=== PATIENT | female | born 1970 | race Caucasian/White ===

== ENCOUNTER → 2018-10-18 | Outpatient (CLI) | payer SELFPAY ==
--- NOTE | 2018-10-18 10:41 | Diagnostic Imaging Report ---
PROCEDURE: US Hepatic (Liver). TECHNIQUE: Multiple real-time grayscale images were obtained over the right upper quadrant in various projections. INDICATION: Elevated liver enzymes. FINDINGS: Liver is upper limits of normal in size at 17.7 cm. Liver is diffusely echogenic consistent with hepatic steatosis. There is parenchymal heterogeneity. No discrete liver mass is identified. The portal vein is patent and shows normal direction of flow. Gallbladder is without stones or sludge. No wall thickening or biliary duct dilatation is seen. The pancreas is poorly visualized due to bowel gas. Right kidney is unremarkable. No calculi or hydronephrosis is seen. There is no ascites. IMPRESSION: 1. Hepatic steatosis. 2. No evidence of cholelithiasis or acute cholecystitis. Dictated by: Dictated on workstation # [id number]
== END ==
LOC: RAD 09:37
PROVIDERS: ATTEND Registered Nurse
DX: K76.0 Fatty (change of) liver, not elsewhere classified (principal)
CPT/HCPCS: 76705

== ENCOUNTER 2018-11-18 16:38 | Emergency (ER) | payer OTHER ==
[~2018-11-18] VITALS: Ht 157.5 cm; Wt 85.7 kg
--- OUTSIDE RECORDS SUMMARY | 2018-11-18 16:42 | XMS REPORT ---
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 Active 24472998 Problem Astigmatism of both eyes, unspecified type H52.203 Active 98949630 Problem Open angle with borderline findings and high glaucoma risk in both eyes H40.023 Active 778666600 Problem Myopia of both eyes H52.13 Active 95398933 Problem Presbyopia H52.4 Active 85564222 Problem Pinguecula, bilateral H11.153 Active 55383151 Problem Hyperlipidemia E78.5 Active 33255405 Problem Diabetes mellitus type 2, uncontrolled E11.65 Active 60166040 Problem Generalized anxiety disorder F41.1 Active 12226577 Problem Severe episode of recurrent major depressive disorder, without psychotic features F33.2 Active 56672493 Problem PTSD (post-traumatic stress disorder) F43.10 Active 94538287 Problem Posttraumatic stress disorder F43.10 Active 30552468 ALLERGIES No Information ENCOUNTERS Encounter Location Date Diagnosis [place] [id number] [address] Jun, [place] [address] [address] Jun, [place] [address] [place] [address] May, [place] [address] [place] [address] May, Generalized anxiety disorder F41.1 ; Severe episode of recurrent major depressive disorder, without psychotic features F33.2 and Posttraumatic stress disorder F43.10 [place] [id number] [address] May, Severe episode of recurrent major depressive disorder, without psychotic features F33.2 ; Generalized anxiety disorder F41.1 and PTSD (post-traumatic stress disorder) F43.10 [facility] [id number] [address] May, [facility] [address] [place] [address] Apr, [place] [address] [place] [address] Apr, Diabetes mellitus type 2, uncontrolled E11.65 [place] [address] [address] Apr, Generalized anxiety disorder F41.1 ; Severe episode of recurrent major depressive disorder, without psychotic features F33.2 and Posttraumatic stress disorder F43.[address] [id number] [id number] Apr, [place] [id number] [address] Apr, Severe episode of recurrent major depressive disorder, without psychotic features F33.2 ; Generalized anxiety disorder F41.1 and PTSD (post-traumatic stress disorder) F43.[address] [id number] [id number] Apr, Diabetes mellitus type 2, uncontrolled E11.65 ; Severe episode of recurrent major depressive disorder, without psychotic features F33.2 ; Generalized anxiety disorder F41.1 and PTSD (post-traumatic stress disorder) F43.10 [place] [id number] [address] Mar, Severe episode of recurrent major depressive disorder, without psychotic features F33.2 ; Generalized anxiety disorder F41.1 and PTSD (post-traumatic stress disorder) F43.10 [place] [id number] [address] Mar, [facility] [address] [facility] [id number] [id number] Mar, Diabetes mellitus type 2, uncontrolled E11.65 ; Hyperlipidemia E78.5 ; Elevated liver enzymes R74.8 ; Hematochezia K92.1 ; Severe episode of recurrent major depressive disorder, without psychotic features F33.2 ; Generalized anxiety disorder F41.1 and Vaginal odor N94.89 [facility] [address] [facility] [id number] [place] [id number] 02 Mar, 2018 Hematochezia K92.1 and General medical examination Z00.00 [facility] [address] [facility] [id number] [address] Mar, Generalized anxiety disorder F41.1 and Severe episode of recurrent major depressive disorder, without psychotic features F33.2 [facility] [address] [facility] [id number] [place] [address] Mar, Suicidal ideation R45.851 ; Depression F32.9 ; Urinary tract infection N39.0 ; Urinary urgency R39.15 ; Vaginal odor N94.89 ; Hematochezia K92.1 and General medical examination Z00.00 IMMUNIZATIONS No Known Immunizations SOCIAL HISTORY Never Assessed REASON FOR VISIT f/u PLAN OF CARE Activity Details Follow Up Next available Reason: F/U VITAL SIGNS MEDICATIONS Unknown Medications RESULTS No Results PROCEDURES Procedure Date Ordered Result Body Site Psychotherapy, patient and family, 45 minutes, established patient May 22, 2018 INSTRUCTIONS MEDICATIONS ADMINISTERED No Known Medications MEDICAL (GENERAL) HISTORY Type Description Date Medical History DM type 2 Medical History depression/anxiety Medical History Hematochezia Medical History Hematochezia Surgical History section Surgical History tubal ligation Surgical History oopherectomy left ovary Surgical History partial hysterectomy Hospitalization History Surgery(s)/Childbirth(s) only
--- OUTSIDE RECORDS SUMMARY | 2018-11-18 16:43 | XMS REPORT ---
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 Active 79827418 Problem Astigmatism of both eyes, unspecified type H52.203 Active 68279240 Problem Open angle with borderline findings and high glaucoma risk in both eyes H40.023 Active 069530968 Problem Myopia of both eyes H52.13 Active 94924723 Problem Presbyopia H52.4 Active 55867414 Problem Pinguecula, bilateral H11.153 Active 54836756 Problem Hyperlipidemia E78.5 Active 22416242 Problem Diabetes mellitus type 2, uncontrolled E11.65 Active 15160395 Problem Generalized anxiety disorder F41.1 Active 53629523 Problem Severe episode of recurrent major depressive disorder, without psychotic features F33.2 Active 85850050 Problem PTSD (post-traumatic stress disorder) F43.10 Active 86155736 Problem Posttraumatic stress disorder F43.10 Active 56791752 ALLERGIES Substance Reaction Event Type Date Status Codeine Sulfate nausea and vomiting Drug Allergy May, Active ENCOUNTERS Encounter Location Date Diagnosis [facility] [place] [id number] [address] Jun, [facility] [place] [id number] [address] May, [facility] [place] [id number] [address] May, Severe episode of recurrent major depressive disorder, without psychotic features F33.2 ; Generalized anxiety disorder F41.1 and PTSD (post-traumatic stress disorder) F43.10 [facility] [place] [address] [address] May, [facility] [place] [address] [address] Apr, [facility] [place] [address] [address] Apr, Diabetes mellitus type 2, uncontrolled E11.65 [facility] [place] [address], [place] [address] Apr, Generalized anxiety disorder F41.1 ; Severe episode of recurrent major depressive disorder, without psychotic features F33.2 and Posttraumatic stress disorder F43.[address] [id number] [id number] Apr, [facility] [place] [id number] [address] Apr, Severe episode of recurrent major depressive disorder, without psychotic features F33.2 ; Generalized anxiety disorder F41.1 and PTSD (post-traumatic stress disorder) F43.10 [facility] [address] [facility] [id number] [id number] Apr, Diabetes mellitus type 2, uncontrolled E11.65 ; Severe episode of recurrent major depressive disorder, without psychotic features F33.2 ; Generalized anxiety disorder F41.1 and PTSD (post-traumatic stress disorder) F43.10 [facility] [place] [id number] [address] Mar, Severe episode of recurrent major depressive disorder, without psychotic features F33.2 ; Generalized anxiety disorder F41.1 and PTSD (post-traumatic stress disorder) F43.10 [facility] [place] [address] [facility] [id number] [address] Mar, [facility] [address] [id number] Mar, Diabetes mellitus type 2, uncontrolled E11.65 ; Hyperlipidemia E78.5 ; Elevated liver enzymes R74.8 ; Hematochezia K92.1 ; Severe episode of recurrent major depressive disorder, without psychotic features F33.2 ; Generalized anxiety disorder F41.1 and Vaginal odor N94.89 [facility] [address] [facility] [id number] [place] [id number] 02 Mar, 2018 Hematochezia K92.1 and General medical examination Z00.00 [facility] [place] [address] [facility] [id number] [place] [address] Mar, Generalized anxiety disorder F41.1 and Severe episode of recurrent major depressive disorder, without psychotic features F33.2 [facility] [address] [facility] [id number] [place] [id number] 01 Mar, 2018 Suicidal ideation R45.851 ; Depression F32.9 ; Urinary tract infection N39.0 ; Urinary urgency R39.15 ; Vaginal odor N94.89 ; Hematochezia K92.1 and General medical examination Z00.00 IMMUNIZATIONS No Known Immunizations SOCIAL HISTORY Never Assessed REASON FOR VISIT f/u Alberto PLAN OF CARE Activity Details Follow Up 4 Weeks Reason: f/u VITAL SIGNS Height 62 in 2018-05-16 Weight 195.2 lbs 2018-05-16 Heart Rate 76 bpm 2018-05-16 Respiratory Rate 20 2018-05-16 BMI 35.7 kg/m2 2018-05-16 Blood pressure systolic 126 mmHg 2018-05-16 Blood pressure diastolic 72 mmHg 2018-05-16 MEDICATIONS Medication Instructions Dosage Frequency Start Date End Date Duration Status Gabapentin 100 MG Orally 3 times a day 1 capsule 8h Not-Taking Glucometer 1 kit as directed Mar, daily Active Pristiq 50 mg Orally Once a day 1 tablet 24h May, 30 day(s) Active Lisinopril 5 mg Orally Once a day 1 tablet 24h Apr, 30 day(s) Active MetFORMIN HCl ER 500 mg Orally twice a day with food 2 tablet Mar, Active RESULTS No Results PROCEDURES No Known procedures INSTRUCTIONS MEDICATIONS ADMINISTERED No Known Medications MEDICAL (GENERAL) HISTORY Type Description Date Medical History DM type 2 Medical History depression/anxiety Medical History Hematochezia Medical History Hematochezia Surgical History section Surgical History tubal ligation Surgical History oopherectomy left ovary Surgical History partial hysterectomy Hospitalization History Surgery(s)/Childbirth(s) only
--- OUTSIDE RECORDS SUMMARY | 2018-11-18 16:43 | XMS REPORT ---
Author Author MISA FIGUEROA [facility] Address [address] [place] [address] Care Team Providers Care Commissary Manager Name Role Phone MISA FIGUEROA Unavailable PROBLEMS Type Condition ICD9-CM Code JTO56-PL Code Onset Dates Condition Status SNOMED Code Problem Hyperlipidemia E78.5 Active 21234048 Problem Diabetes mellitus type 2, uncontrolled E11.65 Active 54951601 Problem Severe episode of recurrent major depressive disorder, without psychotic features F33.2 Active 78388081 Problem Generalized anxiety disorder F41.1 Active 53553937 Problem PTSD (post-traumatic stress disorder) F43.10 Active 60264156 Problem Posttraumatic stress disorder F43.10 Active 22264956 ALLERGIES Substance Reaction Event Type Date Status Codeine Sulfate nausea and vomiting Drug Allergy Apr, Active ENCOUNTERS Encounter Location Date Diagnosis [facility] [address], [place] [address] May, [facility] [id number] [place] [address] May, [facility] [address], [place] [address] Apr, [facility] [address] [place] [address] Apr, [facility] [address] [place] [address] Apr, Generalized anxiety disorder F41.1 ; Severe episode of recurrent major depressive disorder, without psychotic features F33.2 and Posttraumatic stress disorder F43.10 [facility] [address] [id number] [id number] Apr, [facility] [address], [place] [address] Apr, Severe episode of recurrent major depressive disorder, without psychotic features F33.2 ; Generalized anxiety disorder F41.1 and PTSD (post-traumatic stress disorder) F43.[address] [place] [id number] Apr, Diabetes mellitus type 2, uncontrolled E11.65 ; Severe episode of recurrent major depressive disorder, without psychotic features F33.2 ; Generalized anxiety disorder F41.1 and PTSD (post-traumatic stress disorder) F43.10 [place] [id number] [place] [address] Mar, Severe episode of recurrent major depressive disorder, without psychotic features F33.2 ; Generalized anxiety disorder F41.1 and PTSD (post-traumatic stress disorder) F43.10 [place] [address] [place] [address] Mar, [address] [place] [id number] Mar, Diabetes mellitus type 2, uncontrolled E11.65 ; Hyperlipidemia E78.5 ; Elevated liver enzymes R74.8 ; Hematochezia K92.1 ; Severe episode of recurrent major depressive disorder, without psychotic features F33.2 ; Generalized anxiety disorder F41.1 and Vaginal odor N94.[address] [place] [id number] 02 Mar, 2018 Hematochezia K92.1 and General medical examination Z00.00 [place] [address] [place] [address] Mar, Generalized anxiety disorder F41.1 and Severe episode of recurrent major depressive disorder, without psychotic features F33.[address] [place] [phone] Mar, Suicidal ideation R45.851 ; Depression F32.9 ; Urinary tract infection N39.0 ; Urinary urgency R39.15 ; Vaginal odor N94.89 ; Hematochezia K92.1 and General medical examination Z00.00 IMMUNIZATIONS No Known Immunizations SOCIAL HISTORY Never Assessed REASON FOR VISIT f/u Alberto PLAN OF CARE Activity Details Follow Up 4 Weeks Reason: Follow-up VITAL SIGNS Height 62 in 2018-04-16 Weight 202.3 lbs 2018-04-16 Heart Rate 84 bpm 2018-04-16 Respiratory Rate 18 2018-04-16 BMI 37.00 kg/m2 2018-04-16 Blood pressure systolic 134 mmHg 2018-04-16 Blood pressure diastolic 78 mmHg 2018-04-16 MEDICATIONS Medication Instructions Dosage Frequency Start Date End Date Duration Status MetFORMIN HCl ER 500 mg Orally as directed #1 tablet PO Q AM and #2 tablet PO Q PM Mar, 30 day(s) Active Glucometer 1 kit as directed Mar, daily Active Lexapro 10 MG Orally Once a day for two weeks, then 1.5 tablet daily 1 tablet Mar, 30 days Active Lisinopril 5 mg Orally Once a day 1 tablet 24h Apr, 30 day(s) Active HydrOXYzine HCl 50 MG Orally at bedtime as needed for sleep 1 tablet Mar, 30 days Active Gabapentin 100 MG Orally 3 times a day 1 capsule 8h Active RESULTS No Results PROCEDURES No Known procedures INSTRUCTIONS MEDICATIONS ADMINISTERED No Known Medications MEDICAL (GENERAL) HISTORY Type Description Date Medical History DM type 2 Medical History depression/anxiety Medical History Hematochezia Medical History Hematochezia Surgical History section Surgical History tubal ligation Surgical History oopherectomy left ovary Surgical History partial hysterectomy Hospitalization History Surgery(s)/Childbirth(s) only
--- OUTSIDE RECORDS SUMMARY | 2018-11-18 16:43 | XMS REPORT ---
Author Author MILLIE HARRIS [facility] Address [address] [place] [address] Care Team Providers Care Bridge Worker Apprentice Name Role Phone MILLIE HARRIS Unavailable PROBLEMS Type Condition ICD9-CM Code TEE31-HH Code Onset Dates Condition Status SNOMED Code Problem Hyperlipidemia E78.5 Active 84016245 Problem Diabetes mellitus type 2, uncontrolled E11.65 Active 76027876 Problem Severe episode of recurrent major depressive disorder, without psychotic features F33.2 Active 24761506 Problem Generalized anxiety disorder F41.1 Active 91843425 Problem PTSD (post-traumatic stress disorder) F43.10 Active 79566016 Problem Posttraumatic stress disorder F43.10 Active 79005846 ALLERGIES No Information ENCOUNTERS Encounter Location Date Diagnosis [facility] [address], [place] [address] May, [facility] [id number] [place] [address] May, [facility] [id number] [place] [address] Apr, [facility] [address] [place] [address] Apr, Generalized anxiety disorder F41.1 ; Severe episode of recurrent major depressive disorder, without psychotic features F33.2 and Posttraumatic stress disorder F43.10 [facility] [address] [id number] [id number] Apr, [facility] [id number] [place] [address] Apr, Severe episode of recurrent major depressive disorder, without psychotic features F33.2 ; Generalized anxiety disorder F41.1 and PTSD (post-traumatic stress disorder) F43.10 [facility] [address] Apr, Diabetes mellitus type 2, uncontrolled E11.65 ; Severe episode of recurrent major depressive disorder, without psychotic features F33.2 ; Generalized anxiety disorder F41.1 and PTSD (post-traumatic stress disorder) F43.10 [place] [id number] [place] [address] Mar, Severe episode of recurrent major depressive disorder, without psychotic features F33.2 ; Generalized anxiety disorder F41.1 and PTSD (post-traumatic stress disorder) F43.10 [place] [id number] [place] [address] Mar, [address] [place] [id number] Mar, Diabetes mellitus type 2, uncontrolled E11.65 ; Hyperlipidemia E78.5 ; Elevated liver enzymes R74.8 ; Hematochezia K92.1 ; Severe episode of recurrent major depressive disorder, without psychotic features F33.2 ; Generalized anxiety disorder F41.1 and Vaginal odor N94.89 [address] [place] [id number] Mar, Hematochezia K92.1 and General medical examination Z00.00 [place] [address] [place] [address] Mar, Generalized anxiety disorder F41.1 and Severe episode of recurrent major depressive disorder, without psychotic features F33.[address] [place] [id number] Mar, Suicidal ideation R45.851 ; Depression F32.9 ; Urinary tract infection N39.0 ; Urinary urgency R39.15 ; Vaginal odor N94.89 ; Hematochezia K92.1 and General medical examination Z00.00 IMMUNIZATIONS No Known Immunizations SOCIAL HISTORY Never Assessed REASON FOR VISIT DM ED PLAN OF CARE VITAL SIGNS MEDICATIONS Unknown Medications RESULTS No Results PROCEDURES No Known procedures INSTRUCTIONS MEDICATIONS ADMINISTERED No Known Medications MEDICAL (GENERAL) HISTORY Type Description Date Medical History DM type 2 Medical History depression/anxiety Medical History Hematochezia Medical History Hematochezia Surgical History section Surgical History tubal ligation Surgical History oopherectomy left ovary Surgical History partial hysterectomy Hospitalization History Surgery(s)/Childbirth(s) only
--- OUTSIDE RECORDS SUMMARY | 2018-11-18 16:43 | XMS REPORT ---
Author Author RACHELLE STACK [facility] Address [address] [place] [address] Care Team Providers Care Children'S Entertainer Name Role Phone SREEKANTHRACHELLE Unavailable PROBLEMS Type Condition ICD9-CM Code MVX39-[id number] Code Onset Dates Condition Status SNOMED Code Problem Hyperlipidemia E78.5 Active 20104159 Problem Diabetes mellitus type 2, uncontrolled E11.65 Active 23269698 Problem Severe episode of recurrent major depressive disorder, without psychotic features F33.2 Active 84216765 Problem Generalized anxiety disorder F41.1 Active 03661082 Problem PTSD (post-traumatic stress disorder) F43.10 Active 55881613 Problem Posttraumatic stress disorder F43.10 Active 51619051 ALLERGIES Substance Reaction Event Type Date Status Codeine Sulfate nausea and vomiting Drug Allergy Apr, Active ENCOUNTERS Encounter Location Date Diagnosis [facility] [address] [address] May, [facility] [address] [place] [address] May, [facility] [address] [address] Apr, [facility] [id number] [place] [address] Apr, Generalized anxiety disorder F41.1 ; Severe episode of recurrent major depressive disorder, without psychotic features F33.2 and Posttraumatic stress disorder F43.10 [facility] [address] [id number] [id number] Apr, [facility] [id number] [address] Apr, Severe episode of recurrent major depressive disorder, without psychotic features F33.2 ; Generalized anxiety disorder F41.1 and PTSD (post-traumatic stress disorder) F43.10 [facility] [id number] [place] [phone] Apr, Diabetes mellitus type 2, uncontrolled E11.65 ; Severe episode of recurrent major depressive disorder, without psychotic features F33.2 ; Generalized anxiety disorder F41.1 and PTSD (post-traumatic stress disorder) F43.10 [place] [id number] [place] [address] Mar, Severe episode of recurrent major depressive disorder, without psychotic features F33.2 ; Generalized anxiety disorder F41.1 and PTSD (post-traumatic stress disorder) F43.10 [place] [id number] [place] [address] Mar, [facility] [address] [place] [id number] Mar, Diabetes mellitus type 2, uncontrolled E11.65 ; Hyperlipidemia E78.5 ; Elevated liver enzymes R74.8 ; Hematochezia K92.1 ; Severe episode of recurrent major depressive disorder, without psychotic features F33.2 ; Generalized anxiety disorder F41.1 and Vaginal odor N94.[address] [place] [id number] 02 Mar, 2018 Hematochezia K92.1 and General medical examination Z00.00 [place] [id number] [place] [address] Mar, Generalized anxiety disorder F41.1 and Severe episode of recurrent major depressive disorder, without psychotic features F33.2 [facility] [address] [place] [id number] 01 Mar, 2018 Suicidal ideation R45.851 ; Depression F32.9 ; Urinary tract infection N39.0 ; Urinary urgency R39.15 ; Vaginal odor N94.89 ; Hematochezia K92.1 and General medical examination Z00.00 IMMUNIZATIONS No Known Immunizations SOCIAL HISTORY Never Assessed REASON FOR VISIT [facility]- 4 week f/u on DM Sylvester AGARWAL PLAN OF CARE Activity Details Follow Up 2 Months, prn Reason:[facility] VITAL SIGNS Height 62 in 2018-04-15 Weight 198 lbs 2018-04-15 Temperature 98.3 degrees Fahrenheit 2018-04-15 Heart Rate 80 bpm 2018-04-15 Respiratory Rate 16 2018-04-15 BMI 36.21 kg/m2 2018-04-15 Blood pressure systolic 128 mmHg 2018-04-15 Blood pressure diastolic 78 mmHg 2018-04-15 MEDICATIONS Medication Instructions Dosage Frequency Start Date End Date Duration Status Lexapro 5 mg Orally Once a day 1 tablet 24h Mar, Active MetFORMIN HCl ER 500 mg Orally as directed #1 tablet PO Q AM and #2 tablet PO Q PM Mar, 30 day(s) Active Gabapentin 100 MG Orally 3 times a day 1 capsule 8h Active HydrOXYzine HCl 25 MG Orally at bedtime as needed for sleep 1 tablet Mar, Active Lisinopril 5 mg Orally Once a day 1 tablet 24h Apr, 30 day(s) Active Glucometer 1 kit as directed Mar, daily Active RESULTS No Results PROCEDURES No Known procedures INSTRUCTIONS MEDICATIONS ADMINISTERED No Known Medications MEDICAL (GENERAL) HISTORY Type Description Date Medical History DM type 2 Medical History depression/anxiety Medical History Hematochezia Medical History Hematochezia Surgical History section Surgical History tubal ligation Surgical History oopherectomy left ovary Surgical History partial hysterectomy Hospitalization History Surgery(s)/Childbirth(s) only
--- OUTSIDE RECORDS SUMMARY | 2018-11-18 16:43 | XMS REPORT ---
Author Author KRISTIE WIGGINS [facility] Address [address] [place] [address] Care Team Providers Care Professor Of Kinesiology Name Role Phone KRISTIE WIGGINS Unavailable PROBLEMS Type Condition ICD9-CM Code FKB99-NW Code Onset Dates Condition Status SNOMED Code Problem Hyperlipidemia E78.5 Active 86671187 Problem Diabetes mellitus type 2, uncontrolled E11.65 Active 39967773 Problem Severe episode of recurrent major depressive disorder, without psychotic features F33.2 Active 66316755 Problem Generalized anxiety disorder F41.1 Active 31910329 Problem PTSD (post-traumatic stress disorder) F43.10 Active 36763335 Problem Posttraumatic stress disorder F43.10 Active 29860180 ALLERGIES No Information ENCOUNTERS Encounter Location Date Diagnosis [facility] [address] [place] [address] May, [facility] [id number] [place] [address] May, [facility] [id number] [place] [address] May, [place] [address] [place] [address] Apr, [facility] [address] [place] [address] Apr, Diabetes mellitus type 2, uncontrolled E11.65 [facility] [id number] [place] [address] Apr, Generalized anxiety disorder F41.1 ; Severe episode of recurrent major depressive disorder, without psychotic features F33.2 and Posttraumatic stress disorder F43.[address] [id number] [id number] Apr, [place] [id number] [address] Apr, Severe episode of recurrent major depressive disorder, without psychotic features F33.2 ; Generalized anxiety disorder F41.1 and PTSD (post-traumatic stress disorder) F43.10 [place] [id number] [id number] Apr, Diabetes mellitus type 2, uncontrolled E11.65 ; Severe episode of recurrent major depressive disorder, without psychotic features F33.2 ; Generalized anxiety disorder F41.1 and PTSD (post-traumatic stress disorder) F43.10 [place] [address] [place] [address] Mar, Severe episode of recurrent major depressive disorder, without psychotic features F33.2 ; Generalized anxiety disorder F41.1 and PTSD (post-traumatic stress disorder) F43.10 [place] [address] [place] [address] Mar, [address] [id number] Mar, Diabetes mellitus type 2, uncontrolled E11.65 ; Hyperlipidemia E78.5 ; Elevated liver enzymes R74.8 ; Hematochezia K92.1 ; Severe episode of recurrent major depressive disorder, without psychotic features F33.2 ; Generalized anxiety disorder F41.1 and Vaginal odor N94.89 [address] [id number] Mar, Hematochezia K92.1 and General medical examination Z00.00 [place] [address] [place] [address] Mar, Generalized anxiety disorder F41.1 and Severe episode of recurrent major depressive disorder, without psychotic features F33.[address] [place] [id number] Mar, Suicidal ideation R45.851 ; Depression F32.9 ; Urinary tract infection N39.0 ; Urinary urgency R39.15 ; Vaginal odor N94.89 ; Hematochezia K92.1 and General medical examination Z00.00 IMMUNIZATIONS No Known Immunizations SOCIAL HISTORY Never Assessed REASON FOR VISIT PLAN OF CARE VITAL SIGNS MEDICATIONS Unknown [...]
--- OUTSIDE RECORDS SUMMARY | 2018-11-18 16:43 | XMS REPORT ---
Author Author RACHELLE STACK [facility] Address [address] [place] [address] Care Team Providers Care Passenger Conductor Name Role Phone SREEKANTH RACHELLE Unavailable PROBLEMS Type Condition ICD9-CM Code ERN69-OA Code Onset Dates Condition Status SNOMED Code Problem Vaginal odor N94.89 Active 753690421 Problem Hyperlipidemia E78.5 Active 71920923 Problem Diabetes mellitus type 2, uncontrolled E11.65 Active 67098932 Problem Severe episode of recurrent major depressive disorder, without psychotic features F33.2 Active 84811265 Problem Depression F32.9 Active 41069946 Problem Hematochezia K92.1 Active 159364797 Problem Generalized anxiety disorder F41.1 Active 12615751 ALLERGIES Substance Reaction Event Type Date Status Codeine Sulfate nausea and vomiting Drug Allergy Mar, Active ENCOUNTERS Encounter Location Date Diagnosis [facility] [id number] [place] [address] Apr, [facility] [id number] [place] [address] Apr, [facility] [id number] [id number] Apr, [facility] [id number] [place] [address] Mar, [facility] [id number] [place] [id number] Mar, Diabetes mellitus type 2, uncontrolled E11.65 ; Hyperlipidemia E78.5 ; Elevated liver enzymes R74.8 ; Hematochezia K92.1 ; Severe episode of recurrent major depressive disorder, without psychotic features F33.2 ; Generalized anxiety disorder F41.1 and Vaginal odor N94.89 [facility] [id number] [id number] Mar, Hematochezia K92.1 and General medical examination Z00.00 [facility] [address] [facility] [id number] [address] Mar, Generalized anxiety disorder F41.1 and Severe episode of recurrent major depressive disorder, without psychotic features F33.2 [facility] [id number] [place] [id number] Mar, Suicidal ideation R45.851 ; Depression F32.9 ; Urinary tract infection N39.0 ; Urinary urgency R39.15 ; Vaginal odor N94.89 ; Hematochezia K92.1 and General medical examination Z00.00 IMMUNIZATIONS No Known Immunizations SOCIAL HISTORY Never Assessed REASON FOR VISIT [facility]- lab f/u Sylvester AGARWAL PLAN OF CARE Activity Details Follow Up 4 Weeks, prn Reason:DM/[facility] Pending Test GC/CHLAM URINE (STATE) VITAL SIGNS Height 62 in 2018-03-18 Weight 206 lbs 2018-03-18 Temperature 97 degrees Fahrenheit 2018-03-18 Heart Rate 84 bpm 2018-03-18 Respiratory Rate 16 2018-03-18 BMI 37.67 kg/m2 2018-03-18 Blood pressure systolic 122 mmHg 2018-03-18 Blood pressure diastolic 68 mmHg 2018-03-18 MEDICATIONS Medication Instructions Dosage Frequency Start Date End Date Duration Status Glucometer 1 kit as directed Mar, daily Active MetFORMIN HCl ER 500 mg Orally as directed 1 tablet Q PM X 7 days, then #1 tablet twice daily Mar, 30 day(s) Active RESULTS No Results PROCEDURES Procedure Date Ordered Result Body Site MICROALBUMIN, SEMIQUANT Mar 18, 2018 MICROALBUMIN, QUANTITATIVE Mar 18, 2018 ASSAY THYROID STIM HORMONE Mar 18, 2018 No Charge Mar 18, 2018 ASSAY OF URINE CREATININE Mar 18, 2018 VENIPUNCT, ROUTINE* Mar 18, 2018 INSTRUCTIONS MEDICATIONS ADMINISTERED No Known Medications MEDICAL (GENERAL) HISTORY Type Description Date Surgical History section Surgical History tubal ligation Surgical History oopherectomy left ovary Surgical History partial hysterectomy Hospitalization History Surgery(s)/Childbirth(s) only
--- OUTSIDE RECORDS SUMMARY | 2018-11-18 16:43 | XMS REPORT ---
Author Author KRISTIE WGIGINS [facility] Address [address] [place] [address] Care Team Providers Care Artillery Meteorological Man Name Role Phone KRISTIE WIGGINS Unavailable PROBLEMS Type Condition ICD9-CM Code FLI45-BF Code Onset Dates Condition Status SNOMED Code Problem Hyperlipidemia E78.5 Active 06569028 Problem Diabetes mellitus type 2, uncontrolled E11.65 Active 12201928 Problem Severe episode of recurrent major depressive disorder, without psychotic features F33.2 Active 56566167 Problem Generalized anxiety disorder F41.1 Active 41244634 Problem PTSD (post-traumatic stress disorder) F43.10 Active 96432423 Problem Posttraumatic stress disorder F43.10 Active 25372064 ALLERGIES No Information ENCOUNTERS Encounter Location Date Diagnosis [place] [address] [address] May, [facility] [id number] [place] [address] May, [facility] [address] [address] Apr, [facility] [address] [address] Apr, [facility] [address] [place] [address] Apr, Generalized anxiety disorder F41.1 ; Severe episode of recurrent major depressive disorder, without psychotic features F33.2 and Posttraumatic stress disorder F43.10 [facility] [address] [id number] [id number] Apr, [facility] [id number] [address] Apr, Severe episode of recurrent major depressive disorder, without psychotic features F33.2 ; Generalized anxiety disorder F41.1 and PTSD (post-traumatic stress disorder) F43.10 [address] [place] [phone] Apr, Diabetes mellitus type 2, uncontrolled E11.65 ; Severe episode of recurrent major depressive disorder, without psychotic features F33.2 ; Generalized anxiety disorder F41.1 and PTSD (post-traumatic stress disorder) F43.10 [place] [address] [address] Mar, Severe episode of recurrent major depressive disorder, without psychotic features F33.2 ; Generalized anxiety disorder F41.1 and PTSD (post-traumatic stress disorder) F43.10 [place] [id number] [place] [address] Mar, [address] [place] [phone] Mar, Diabetes mellitus type 2, uncontrolled E11.65 ; Hyperlipidemia E78.5 ; Elevated liver enzymes R74.8 ; Hematochezia K92.1 ; Severe episode of recurrent major depressive disorder, without psychotic features F33.2 ; Generalized anxiety disorder F41.1 and Vaginal odor N94.89 [address] [place] [phone] Mar, Hematochezia K92.1 and General medical examination Z00.00 [place] [id number] [place] [address] Mar, Generalized anxiety disorder F41.1 and Severe episode of recurrent major depressive disorder, without psychotic features F33.2 [address] [place] [phone] Mar, Suicidal ideation R45.851 ; Depression F32.9 [...]
--- OUTSIDE RECORDS SUMMARY | 2018-11-18 16:43 | XMS REPORT ---
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 Active 919599452 Problem Myopia of both eyes H52.13 Active 51132526 Problem Presbyopia H52.4 Active 49599785 Problem Pinguecula, bilateral H11.153 Active 50845336 Problem Hyperlipidemia E78.5 Active 72198564 Problem Diabetes mellitus type 2, uncontrolled E11.65 Active 94792961 Problem Generalized anxiety disorder F41.1 Active 05222450 Problem Severe episode of recurrent major depressive disorder, without psychotic features F33.2 Active 79742242 Problem PTSD (post-traumatic stress disorder) F43.10 Active 64243134 Problem Posttraumatic stress disorder F43.10 Active 06404038 ALLERGIES No Information ENCOUNTERS Encounter Location Date Diagnosis [place] [id number] [address] Jun, [facility] [address], [place] [address] Jun, [facility] [address], [place] [address] May, [place] [address] [place] [address] May, Generalized anxiety disorder F41.1 ; Severe episode of recurrent major depressive disorder, without psychotic features F33.2 and Posttraumatic stress disorder F43.10 [place] [address] [address] May, Severe episode of recurrent major depressive disorder, without psychotic features F33.2 ; Generalized anxiety disorder F41.1 and PTSD (post-traumatic stress disorder) F43.10 [facility] [id number] [address] May, [facility] [address] [address] Apr, [facility] [address] [address] Apr, Diabetes mellitus type 2, uncontrolled E11.65 [place] [address] [address] Apr, Generalized anxiety disorder F41.1 ; Severe episode of recurrent major depressive disorder, without psychotic features F33.2 and Posttraumatic stress disorder F43.[address] [id number] [phone] Apr, [facility] [id number] [address] Apr, Severe episode of recurrent major depressive disorder, without psychotic features F33.2 ; Generalized anxiety disorder F41.1 and PTSD (post-traumatic stress disorder) F43.[address] [id number] [phone] Apr, Diabetes mellitus type 2, uncontrolled E11.65 ; Severe episode of recurrent major depressive disorder, without psychotic features F33.2 ; Generalized anxiety disorder F41.1 and PTSD (post-traumatic stress disorder) F43.10 [place] [id number] [address] Mar, Severe episode of recurrent major depressive disorder, without psychotic features F33.2 ; Generalized anxiety disorder F41.1 and PTSD (post-traumatic stress disorder) F43.10 [facility] [address] [facility] [id number] [address] Mar, [address] [facility] [id number] [address] Mar, Diabetes mellitus type 2, uncontrolled E11.65 ; Hyperlipidemia E78.5 ; Elevated liver enzymes R74.8 ; Hematochezia K92.1 ; Severe episode of recurrent major depressive disorder, without psychotic features F33.2 ; Generalized anxiety disorder F41.1 and Vaginal odor N94.89 [facility] [address] [facility] [id number] [id number] 02 Mar, 2018 Hematochezia K92.1 and General medical examination Z00.00 [facility] [address] [facility] [id number] [address] Mar, Generalized anxiety disorder F41.1 and Severe episode of recurrent major depressive disorder, without psychotic features F33.2 [facility] [address] [facility] [id number] [address] Mar, Suicidal ideation R45.851 ; Depression F32.9 ; Urinary tract infection N39.0 ; Urinary urgency R39.15 ; Vaginal odor N94.89 ; Hematochezia K92.1 and General medical examination Z00.00 IMMUNIZATIONS No Known Immunizations SOCIAL HISTORY Never Assessed REASON FOR VISIT 1 mo f/u DM Ed PLAN OF CARE VITAL SIGNS MEDICATIONS Unknown [...]
--- OUTSIDE RECORDS SUMMARY | 2018-11-18 16:43 | XMS REPORT ---
Author Author RACHELLE STACK [facility] Address [address] [place] [address] Care Team Providers Care Bradder Name Role Phone SREEKANTHRACHELLE Unavailable PROBLEMS Type Condition ICD9-CM Code TLD11-WR Code Onset Dates Condition Status SNOMED Code Problem Hyperlipidemia E78.5 Active 62104931 Problem Diabetes mellitus type 2, uncontrolled E11.65 Active 81125663 Problem Severe episode of recurrent major depressive disorder, without psychotic features F33.2 Active 48991141 Problem Generalized anxiety disorder F41.1 Active 31592559 Problem PTSD (post-traumatic stress disorder) F43.10 Active 16128977 Problem Posttraumatic stress disorder F43.10 Active 04761605 ALLERGIES No Information ENCOUNTERS Encounter Location Date Diagnosis [place] [address] [address] May, [facility] [id number] [place] [phone] May, [place] [address] [place] [phone] Apr, [place] [address] [address] Apr, Diabetes mellitus type 2, uncontrolled E11.65 [facility] [address] [place] [phone] Apr, Generalized anxiety disorder F41.1 ; Severe episode of recurrent major depressive disorder, without psychotic features F33.2 and Posttraumatic stress disorder F43.10 [facility] [address] [id number] [id number] Apr, [facility] [id number] [address] Apr, Severe episode of recurrent major depressive disorder, without psychotic features F33.2 ; Generalized anxiety disorder F41.1 and PTSD (post-traumatic stress disorder) F43.10 [address] [place] [id number] Apr, Diabetes mellitus type 2, uncontrolled E11.65 ; Severe episode of recurrent major depressive disorder, without psychotic features F33.2 ; Generalized anxiety disorder F41.1 and PTSD (post-traumatic stress disorder) F43.10 [place] [id number] [place] [id number] Mar, Severe episode of recurrent major depressive disorder, without psychotic features F33.2 ; Generalized anxiety disorder F41.1 and PTSD (post-traumatic stress disorder) F43.10 [place] [id number] [place] [address] Mar, [address] [place] [id number] Mar, Diabetes mellitus type 2, uncontrolled E11.65 ; Hyperlipidemia E78.5 ; Elevated liver enzymes R74.8 ; Hematochezia K92.1 ; Severe episode of recurrent major depressive disorder, without psychotic features F33.2 ; Generalized anxiety disorder F41.1 and Vaginal odor N94.89 [address] [place] [id number] Mar, Hematochezia K92.1 and General medical examination Z00.00 [place] [id number] [place] [address] Mar, Generalized anxiety disorder F41.1 and Severe episode of recurrent major depressive disorder, without psychotic features F33.2 [address] [place] [phone] Mar, Suicidal ideation R45.851 ; Depression F32.9 ; Urinary tract infection N39.0 ; Urinary urgency R39.15 ; Vaginal odor N94.89 ; Hematochezia K92.1 and General medical examination Z00.00 IMMUNIZATIONS No Known Immunizations SOCIAL HISTORY Never Assessed REASON FOR VISIT Eye Exam PLAN OF CARE VITAL SIGNS MEDICATIONS Unknown [...]
--- OUTSIDE RECORDS SUMMARY | 2018-11-18 16:43 | XMS REPORT ---
Author Author RACHELLE STACK [facility] Address [address] [place] [address] Care Team Providers Care Mental Tester Name Role Phone SREEKANTHRACHELLE Unavailable PROBLEMS Type Condition ICD9-CM Code GRS54-XL Code Onset Dates Condition Status SNOMED Code Problem Hyperlipidemia E78.5 Active 26412620 Problem Diabetes mellitus type 2, uncontrolled E11.65 Active 04659153 Problem Severe episode of recurrent major depressive disorder, without psychotic features F33.2 Active 29556818 Problem Generalized anxiety disorder F41.1 Active 70241012 Problem PTSD (post-traumatic stress disorder) F43.10 Active 35865692 Problem Posttraumatic stress disorder F43.10 Active 37352063 ALLERGIES No Information ENCOUNTERS Encounter Location Date Diagnosis [place] [address] [place] [phone] May, [facility] [id number] [place] [address] May, [facility] [id number] [place] [address] Apr, [facility] [address] [address] Apr, [facility] [id number] [place] [address] Apr, Diabetes mellitus type 2, uncontrolled E11.65 [facility] [address] [place] [address] Apr, Generalized anxiety disorder F41.1 ; Severe episode of recurrent major depressive disorder, without psychotic features F33.2 and Posttraumatic stress disorder F43.[address] [id number] [id number] Apr, [place] [address] [address] Apr, Severe episode of recurrent major depressive disorder, without psychotic features F33.2 ; Generalized anxiety disorder F41.1 and PTSD (post-traumatic stress disorder) F43.[address] [place] [phone] Apr, Diabetes mellitus type 2, uncontrolled E11.65 ; Severe episode of recurrent major depressive disorder, without psychotic features F33.2 ; Generalized anxiety disorder F41.1 and PTSD (post-traumatic stress disorder) F43.10 [place] [address] [place] [address] Mar, Severe episode of recurrent major depressive disorder, without psychotic features F33.2 ; Generalized anxiety disorder F41.1 and PTSD (post-traumatic stress disorder) F43.10 [place] [address] [place] [address] Mar, [address] [place] [phone] Mar, Diabetes mellitus type 2, uncontrolled E11.65 ; Hyperlipidemia E78.5 ; Elevated liver enzymes R74.8 ; Hematochezia K92.1 ; Severe episode of recurrent major depressive disorder, without psychotic features F33.2 ; Generalized anxiety disorder F41.1 and Vaginal odor N94.[address] [place] [phone] Mar, Hematochezia K92.1 and General medical examination Z00.00 [place] [address] [place] [address] Mar, Generalized anxiety disorder F41.1 and Severe episode of recurrent major depressive disorder, without psychotic features F33.[address] [place] [phone] Mar, Suicidal ideation R45.851 ; Depression F32.9 ; Urinary tract infection N39.0 ; Urinary urgency R39.15 ; Vaginal odor N94.89 ; Hematochezia K92.1 and General medical examination Z00.00 IMMUNIZATIONS No Known Immunizations SOCIAL HISTORY Never Assessed REASON FOR VISIT 1 wk f/u DM Ed PLAN OF CARE VITAL SIGNS MEDICATIONS Medication Instructions Dosage Frequency Start Date End Date Duration Status MetFORMIN HCl ER 500 mg Orally twice [...]
--- OUTSIDE RECORDS SUMMARY | 2018-11-18 16:44 | XMS REPORT | Continuity of Care Document ---
Author Organization Unknown Address Unknown Allergies There is no data. Medications There is no data. Problems Date Dx Coded Attending Type Code Diagnosis Diagnosed By 10/19/2018 RACHELLE STACK APRN Ot K76.0 FATTY (CHANGE OF) LIVER, NOT ELSEWHERE C 11/15/2018 RACHELLE STACK APRN Ot K76.0 FATTY (CHANGE OF) LIVER, NOT ELSEWHERE C 11/15/2018 RACHELLE STACK APRN Ot K76.0 FATTY (CHANGE OF) LIVER, NOT ELSEWHERE C Procedures There is no data. Results Test Result Range CULTURE, URINE - 03/11/18 14:34 CULTURE, URINE, ROUTINE SEE NOTE NRG A1C - 03/12/18 08:46 HEMOGLOBIN A1c 8.4 % of total Hgb <5.7 MICROALBUMIN/CREATININE RATIO, URINE - 03/18/18 14:15 CREATININE, RANDOM URINE 137 mg/dL 20-275 MICROALBUMIN 9.2 mg/dL See Note: MICROALBUMIN/CREATININE RATIO, RANDOM URINE 67 mcg/mg creat <30 THYROID ANALYZER - 03/18/18 14:15 TSH 3.12 mIU/L NRG HEP A ANTIBODY, IgM - 10/03/18 13:55 HEPATITIS A IGM NON-REACTIVE NON-REACTIVE Encounters ACCT No. Visit Date/Time Discharge Status Pt. Type Provider Facility Loc./Unit Complaint [id number] 11/15/2018 09:00:00 ACT Outpatient RACHELLE STACK [facility] [id number] 10/03/2018 13:00:00 Document Registration [id number] 03/18/2018 12:40:00 Document Registration [id number] 03/12/2018 08:40:00 Document Registration [id number] 03/11/2018 12:00:00 Document Registration [id number] 10/18/2018 09:37:00 10/18/2018 23:59:59 CLS Outpatient RACHELLE STACK APRN [facility] RAD ELEVATED LIVER ENZYMES [id number] 11/18/2018 15:45:00 PEN Preadmit RACHELLE STACK APRN [facility] RAD PARESTHESIA OF SKIN
--- OUTSIDE RECORDS SUMMARY | 2018-11-18 16:44 | XMS REPORT ---
Author Author RACHELLE STACK [facility] Address [address] [place] [address] Care Team Providers Care Statement Processor Name Role Phone SREEKANTH RACHELLE Unavailable PROBLEMS Type Condition ICD9-CM Code XML09-BH Code Onset Dates Condition Status SNOMED Code Problem Vaginal odor N94.89 Active 023953067 Problem Hyperlipidemia E78.5 Active 31497539 Problem Diabetes mellitus type 2, uncontrolled E11.65 Active 38011825 Problem Severe episode of recurrent major depressive disorder, without psychotic features F33.2 Active 43575533 Problem Depression F32.9 Active 78098177 Problem Hematochezia K92.1 Active 080507297 Problem Generalized anxiety disorder F41.1 Active 69922234 ALLERGIES Substance Reaction Event Type Date Status Codeine Sulfate nausea and vomiting Drug Allergy Mar, Active ENCOUNTERS Encounter Location Date Diagnosis [facility] [id number] [place] [phone] Apr, [facility] [id number] [place] [phone] Apr, [facility] [id number] [id number] Apr, [facility] [id number] [place] [address] Mar, [facility] [id number] [place] [phone] Mar, Diabetes mellitus type 2, uncontrolled E11.65 ; Hyperlipidemia E78.5 ; Elevated liver enzymes R74.8 ; Hematochezia K92.1 ; Severe episode of recurrent major depressive disorder, without psychotic features F33.2 ; Generalized anxiety disorder F41.1 and Vaginal odor N94.89 [facility] [id number] [place] [id number] Mar, Hematochezia K92.1 and General medical examination Z00.00 [facility] [address] [facility] [id number] [place] [address] Mar, Generalized anxiety disorder F41.1 and Severe episode of recurrent major depressive disorder, without psychotic features F33.2 [facility] [address] [id number] [phone] Mar, Suicidal ideation R45.851 ; Depression F32.9 ; Urinary tract infection N39.0 ; Urinary urgency R39.15 ; Vaginal odor N94.89 ; Hematochezia K92.1 and General medical examination Z00.00 IMMUNIZATIONS No Known Immunizations SOCIAL HISTORY Never Assessed REASON FOR VISIT Establish Care, possible diabetes, foul vaginal odor Juliann RN PLAN OF CARE Activity Details Follow Up 3 months or as indicated by lab, prn Reason:CHM VITAL SIGNS Height 62 in 2018-03-11 Weight 207.6 lbs 2018-03-11 Temperature 97.8 degrees Fahrenheit 2018-03-11 Heart Rate 83 bpm 2018-03-11 Respiratory Rate 18 2018-03-11 BMI 37.97 kg/m2 2018-03-11 Blood pressure systolic 142 mmHg 2018-03-11 Blood pressure diastolic 90 mmHg 2018-03-11 MEDICATIONS Medication Instructions Dosage Frequency Start Date End Date Duration Status Macrobid 100 mg Orally every 12 hrs 1 capsule with food 12h Mar, 6 Mar, 2018 5 days Active RESULTS No Results PROCEDURES Procedure Date Ordered Result Body Site URINALYSIS, AUTO, W/O SCOPE Mar 11, 2018 No Charge Mar 11, 2018 Bacterial Vaginosis In House Mar 11, 2018 TRICHOMONAS ASSAY W/OPTIC Mar 11, 2018 URINE CULTURE/COLONY COUNT Mar 11, 2018 INSTRUCTIONS MEDICATIONS ADMINISTERED No Known Medications MEDICAL (GENERAL) HISTORY Type Description Date Surgical History section Surgical History tubal ligation Surgical History oopherectomy left ovary Surgical History partial hysterectomy Hospitalization History Surgery(s)/Childbirth(s) only
--- OUTSIDE RECORDS SUMMARY | 2018-11-18 16:44 | XMS REPORT ---
Author Author RACHELLE STACK [facility] Address [address] [place] [address] Care Team Providers Care [employer] Name Role Phone SREEKANTH RACHELLE Unavailable PROBLEMS Type Condition ICD9-CM Code SOK05-IF Code Onset Dates Condition Status SNOMED Code Problem Vaginal odor N94.89 Active 008821547 Problem Hyperlipidemia E78.5 Active 93621846 Problem Diabetes mellitus type 2, uncontrolled E11.65 Active 78699473 Problem Severe episode of recurrent major depressive disorder, without psychotic features F33.2 Active 64750442 Problem Depression F32.9 Active 86115181 Problem Hematochezia K92.1 Active 750424864 Problem Generalized anxiety disorder F41.1 Active 94866307 ALLERGIES No Information ENCOUNTERS Encounter Location Date Diagnosis [place] [id number] [place] [address] Apr, [place] [address] [address] Apr, [facility] [id number] [place] [id number] Apr, [place] [address] [id number] [place] [address] Mar, [facility] [id number] [place] [id number] Mar, Diabetes mellitus type 2, uncontrolled E11.65 ; Hyperlipidemia E78.5 ; Elevated liver enzymes R74.8 ; Hematochezia K92.1 ; Severe episode of recurrent major depressive disorder, without psychotic features F33.2 ; Generalized anxiety disorder F41.1 and Vaginal odor N94.89 [facility] [id number] [id number] Mar, 2018 Hematochezia K92.1 and General medical examination Z00.00 [place] [address] [facility] [id number] [place] [address] Mar, Generalized anxiety disorder F41.1 and Severe episode of recurrent major depressive disorder, without psychotic features F33.2 [facility] [address] [facility] [id number] [place] [id number] Mar, Suicidal ideation R45.851 ; Depression F32.9 ; Urinary tract infection N39.0 ; Urinary urgency R39.15 ; Vaginal odor N94.89 ; Hematochezia K92.1 and General medical examination Z00.00 IMMUNIZATIONS No Known Immunizations SOCIAL HISTORY Never Assessed REASON FOR VISIT lab work Juliann ZHU PLAN OF CARE VITAL SIGNS MEDICATIONS Unknown Medications RESULTS No Results PROCEDURES Procedure Date Ordered Result Body Site TEST FOR BLOOD, FECES Mar 12, 2018 VENIPUNCT, ROUTINE* Mar 12, 2018 COMPREHEN METABOLIC PANEL Mar 12, 2018 LIPID PANEL Mar 12, 2018 Hemoglobin Test Send Out 0 dollar Mar 12, 2018 COMPLETE CBC W/AUTO DIFF WBC Mar 12, 2018 INSTRUCTIONS MEDICATIONS ADMINISTERED No Known Medications MEDICAL (GENERAL) HISTORY Type Description Date Surgical History section Surgical History tubal ligation Surgical History oopherectomy left ovary Surgical History partial hysterectomy Hospitalization History Surgery(s)/Childbirth(s) only
[2018-11-18] MEDS ORDERED: LOSA50TA63 (16:59)
[2018-11-18] MEDS ORDERED: BREX0.5T (16:59)
[2018-11-18] MEDS ORDERED: MTF500T (16:59)
[2018-11-18] MEDS ORDERED: AMIT75TA2 (16:59)
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
[2018-11-18] MEDS ORDERED: KETOROLAC 30 MG/ML VIAL IM ONE (17:15)
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
[2018-11-18] MEDS ORDERED: NAPR-1071 PO (18:04)
[2018-11-18] MEDS ORDERED: METH-313 PO (18:04)
--- NOTE | 2018-11-18 18:09 | NUR ---
C COLLAR REMOVED BY Jennifer SHEPARD APRN.
[2018-11-18 18:12] VITALS: BP 140/95
== END 2018-11-18 18:13 | disposition home or self-care (01) ==
LOC: EDUNIT# 16:38 → ER 16:39
DX: S16.1XXA Strain of muscle, fascia and tendon at neck level, initial encounter (principal); E78.00 Pure hypercholesterolemia, unspecified; I10 Essential (primary) hypertension; E11.9 Type 2 diabetes mellitus without complications; R40.2142 Coma scale, eyes open, spontaneous, at arrival to emergency department; R40.2252 Coma scale, best verbal response, oriented, at arrival to emergency department; R40.2362 Coma scale, best motor response, obeys commands, at arrival to emergency department; Z87.19 Personal history of other diseases of the digestive system; Z88.5 Allergy status to narcotic agent; Z90.710 Acquired absence of both cervix and uterus; Z98.890 Other specified postprocedural states; V49.40XA Driver injured in collision with unspecified motor vehicles in traffic accident, initial encounter
CPT/HCPCS: 70450; 72072; 72125; 96372

== ENCOUNTER → 2018-11-18 | Outpatient (CLI) | payer MEDICAID, OTHER ==
[~2018-11-18] MED LIST: AMIT75TA2; BREX0.5T; LOSA50TA63; METH-313 PO; MTF500T; NAPR-1071 PO
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
== END ==
LOC: RAD 14:55
PROVIDERS: ATTEND Registered Nurse
DX: R20.2 Paresthesia of skin (principal); R20.0 Anesthesia of skin; Z78.9 Other specified health status
CPT/HCPCS: 93930

== ENCOUNTER 2018-11-28 06:11 | Outpatient (CLI) | payer OTHER ==
[~2018-11-28] VITALS: Ht 157.5 cm; Wt 85.7 kg
[~2018-11-28 06:11] MED LIST changes: -BREX0.5T; +BREX0.5T PO
[2018-11-28] MEDS ORDERED: METF-397 PO (12:39)
[2018-11-28] MEDS ORDERED: AMIT25TA9 PO (12:39)
[2018-11-28] MEDS ORDERED: DICL50TA6 PO (12:39)
[2018-11-28] MEDS ORDERED: GABA-486 PO (12:39)
[2018-11-28] MEDS ORDERED: LOSA25TA41 PO (12:39)
== END 2018-11-28 12:41 | disposition home or self-care (01) ==
LOC: PREOP 06:11
PROVIDERS: ATTEND Surgery
DX: Z01.818 Encounter for other preprocedural examination (principal)

== ENCOUNTER 2018-12-02 09:16 | Day surgery (SDC) | payer OTHER ==
[~2018-12-02] VITALS: Ht 157.5 cm; Wt 85.7 kg
[~2018-12-02 09:16] MED LIST changes: +AMIT25TA9 PO; +DICL50TA6 PO; +GABA-486 PO; +LACTATED RINGERS 1,000 ML IV ONE; +LOSA25TA41 PO; +METF-397 PO
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
[2018-12-02] MEDS ORDERED: LACTATED RINGERS 1,000 ML IV STA (09:22)
[2018-12-02] MEDS ORDERED: HURRICAINE EXT TUBE (BENZOCAINE) XX PRN (09:30)
[2018-12-02 09:50] VITALS: BP 151/91
[2018-12-02] MEDS ORDERED: PROPOFOL INJECTION 50 ML IV ONE (10:40)
[2018-12-02] MEDS ORDERED: MIDAZOLAM 2 MG/2 ML (VERSED) VIAL ONE (10:40)
--- NOTE | 2018-12-02 11:00 | Progress Note-Pre Operative ---
Pre-Operative Progress Note H&P Reviewed The H&P was reviewed, patient examined and no changes noted. Time Seen by Provider: 10:54 Date H&P Reviewed: Dec 02, 2018 Time H&P Reviewed: 10:55 Pre-Operative Diagnosis: rectal bleed, chronic gastritis BC GILLIAM DO Dec 02, 2018 11:00
--- NOTE | 2018-12-02 11:32 | Progress Note-Post Operative ---
Post-Operative Progess Note Surgeon (s)/Enamel Applier (s) Surgeon BC GILLIAM DO Enamel Applier: none Pre-Operative Diagnosis rectal bleed, chronic gastritis Post-Operative Diagnosis Gastritis ?? Gastric ulcer hiatal hernia Esophagitis Internal hemorrhoids Procedure & Operative Findings Date of Procedure 12/02/18 Procedure Performed/Findings EGD with bx Colon Anesthesia Type IV sedation by SCHOOL COUNSELOR Estimated Blood Loss Estimated blood loss (mL): scant Specimens/Packing Specimens Removed antral bx Body of stomach ??ulcer bx GE jxn bx BC GILLIAM DO Dec 02, 2018 11:32
--- NOTE | 2018-12-02 11:34 | Endoscopy Discharge Instruct ---
Endo Procedure/Findings Findings 1.: Gastritis 2.: Hiatal Hernia 3.: Internal Hemorrhoids Discharge Instructions - Activity: You might feel a little sleepy until tomorrow. This is due to the medicine you received to relax you. Until tomorrow, you should: NOT drive a car, operate machinery or power tools. NOT drink any alcoholic beverages. NOT make any important decisions or sign importortant papers. Do not return to work until tomorrow, unless otherwise instructed. Resume previous activities tomorrow. Diet: Start by taking liquids. If you tolerate liquids, advance to solid food. make an appointment for one week Instructions: 1.: Colonscopy in 10 years, EGD in 1 year Notify Physician - If you experience excessive bleeding, unusual abdominal pain, fever, or chest pain, contact your doctor immediately. Follow-Up: - I have received and understand the above instructions and will call my doctor if I have any further questions. Patient Signature Date Nurse Signature Other (Relationship) BC GILLIAM DO Dec 02, 2018 11:34
[2018-12-02 11:40] VITALS: BP 133/85
[2018-12-02 12:10] VITALS: BP 153/91
[2018-12-02 13:00] VITALS: BP 153/91
--- NOTE | 2018-12-02 14:28 | Anesthesia-General Post-Op ---
MAC Patient Condition Mental Status/LOC: Same as Preop Cardiovascular: Satisfactory Nausea/Vomiting: Absent Respiratory: Satisfactory Pain: Controlled Complications: Absent Post Op Complications Complications None Follow Up Care/Instructions Patient Instructions None needed. Anesthesiology Discharge Order Discharge Order Patient was seen after the procedure and she was doing well, no complaints, stable vital signs, no apparent adverse anesthesia problems. JUAREZ BOOKER DO Dec 02, 2018 14:28
--- NOTE | 2018-12-02 21:11 | OPERATIVE REPORT ---
DATE OF SERVICE: 12/02/2018 PREOPERATIVE DIAGNOSES: 1. Gastritis. 2. Rectal bleed. POSTOPERATIVE DIAGNOSES: 1. Gastritis with questionable ulcer. 2. Hiatal hernia. 3. Esophagitis. 4. Internal hemorrhoids. PROCEDURES: 1. EGD with biopsy. 2. Colonoscopy. SURGEON: Zacarias Knight DO HOTEL DIRECTOR: None. ANESTHESIA: IV sedation by the VIRTUAL CLASSROOM MANAGER. SPECIMEN: One Antral biopsy, a biopsy from the body of the stomach, questionable ulcer and then GE junction biopsy. No biopsies or specimens taken from the colon. BLOOD LOSS: Scant. FLUIDS: Per anesthesia. POSTOPERATIVE CONDITION: Stable. INDICATION FOR PROCEDURE: The patient is a 48-year-old female who has been having some rectal bleeding mostly when she wipes and has chronic gastritis and needs workup. FINDINGS: The patient had some inflammation. There is questionable ulcer in the stomach and also some changes of the GE junction. Biopsy done on stomach and the colon. She just had some internal hemorrhoids. No other obvious pathology. PROCEDURE NOTE: After informed consent was obtained, the patient was brought to the endoscopy suite, placed in the bed in left lateral decubitus position. She was administered with IV sedation by the VIRTUAL CLASSROOM MANAGER who then monitored her vitals the entire time, heart rate, blood pressure and pulse ox. The scope was inserted down the mouth through the esophagus at the GE junction, saw some changes from acid, took a picture of this. Pushed into the stomach, saw what looked like a possible ulcer, took a picture of this. There is some gastritis as well, pushed in the duodenum. Duodenum looked fine. Pulled back into the antrum, again saw some gastritis, took a biopsy at the antrum and pulled back to the spot on the body of the stomach. It looked like a possible ulcer and did a biopsy of this and then pulled back into the GE junction and did 2 biopsies. Then pulled the scope up the esophagus and out of the mouth and then switched gloves and switched scopes and went down below to start the colonoscopy, inserted the scope all the way to about 150 cm, able to get to the cecum, took a picture of appendiceal orifice, noted the ileocecal valve and then slowly withdrew the scope insufflating to look circumferentially at the hanna looking at the cecum up the ascending colon to the hepatic flexure and then down the transverse colon to the splenic flexure, into the descending colon and then down to the sigmoid and finally into the rectum, retroflexed the rectal vault, saw some internal hemorrhoids, took a picture of this and then removed the scope. The patient tolerated the procedure and recovered in the endoscopy suite. Job ID: [id number] DocumentID: [id number] Dictated Date: 12/02/2018 16:12:02 Hotel Director Date: 12/02/2018 21:10:39 Dictated By: ZACARIAS KNIGHT DO
== END 2018-12-02 13:00 | disposition home or self-care (01) ==
LOC: ENDO 09:16
PROVIDERS: ATTEND Surgery
DX: K29.50 Unspecified chronic gastritis without bleeding (principal); K44.9 Diaphragmatic hernia without obstruction or gangrene; K21.0 Gastro-esophageal reflux disease with esophagitis; K64.8 Other hemorrhoids; K62.5 Hemorrhage of anus and rectum; K31.89 Other diseases of stomach and duodenum; B96.81 Helicobacter pylori [H. pylori] as the cause of diseases classified elsewhere; E11.9 Type 2 diabetes mellitus without complications; I10 Essential (primary) hypertension; E78.5 Hyperlipidemia, unspecified; K76.0 Fatty (change of) liver, not elsewhere classified; Z79.84 Long term (current) use of oral hypoglycemic drugs; Z79.899 Other long term (current) drug therapy; Z87.891 Personal history of nicotine dependence
CPT/HCPCS: 82962